=== PATIENT | female | born 1990 | race Hispanic/Latino ===

== ENCOUNTER → 2016-08-17 | Outpatient (CLI) | payer BC ==
[2016-08-17 11:28] LABS: INFLUENZA VIRUS TYPE A ANTIBOD Negative (NEGATIVE); INFLUENZA VIRUS TYPE B ANTIBOD Negative (NEGATIVE)
== END ==
LOC: LAB 11:06
PROVIDERS: ATTEND Physician Assistant
DX: R53.81 Other malaise (principal)
CPT/HCPCS: 87502

== ENCOUNTER → 2016-10-27 | Outpatient (CLI) | payer BC ==
[~2016-10-27] MED LIST: AC500T PO; ESCI5TAB PO
[2016-10-27 12:18] VITALS: BP 107/72
--- NOTE | 2016-10-27 12:18 | Urgent Care T Sheet Gen (E) ---
Intake General Temperature (Fahrenheit): 98.5 Pulse: 79 Blood Pressure Systolic: 107 Blood Pressure Diastolic: 72 Respirations: 20 SPO2: 100 Description of Symptoms Patient presents following an anxiety attack. 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 States that out of nowhere (no triggering event) she noticed chest tightness, shaking and uncontrollable crying. Patient states she went to the break room where she was able to calm herself down over time. States she has a history of depression for which she has taken Celexa, Lexapro and Zoloft in the past. States she took herself off the meds several years ago because they made her lethargic. Patient states that over the past few month, her depression and anxiety has worsened. Her co-workers encouraged her to be seen today. She doesn't have a PCP but is trying to get established with Dr Lee's office. History of Present Illness Allergies: Coded Allergies: No Known Drug Allergies (Unverified , 05/23/12) Home Meds Reported Medications Acetaminophen 500 Mg [id number] Mg PO 05/23/12 Respiratory Constitutional Symptoms: No syptoms reported EENTM: No symptoms reported Respiratory: No symptoms reported Cardiovascular: No symptoms reported Neurological: Anxiety Depressed All Other Systems Reviewed Remaining Systems: All other systems reviewed with negative findings Past Nkkqbza-[id number]-Qxcjyc Hx Surgeries/Hospitalizations Hospitalization/Surgery Hx: abcess on abd, broken Left wrist, left torn meniscus, Respiratory Respiratory History: None Integumentary Integumentary History: None Physical Exam Physical Exam General Appearance: WD/WN No apparent distress (did tear up a few times during exam.) Respiratory Exam: Lungs clear Normal breath sounds Cardiovascular Exam: Regular rate, rhythm Neurologic/Psychiatric Exam: Oriented times 4 Depressed effect Departure Urgent Care Impression Impression: Primary Impression: Depressed Qualified Code: F32.9 - Major depressive disorder, single episode, unspecified Additional Impression: Anxiety Departure Disposition: 01 HOME OR SELF-CARE Condition: Stable Additional Instructions: Encouraged the patient to call and set up an appt with someone in Dr Lee's office as I believe she needs to resume her daily depression meds. In the meantime, I have started her back on Lexapro. I have started her on 5mg daily and will most likely increase to 10mg daily. Instructed the patient to call me in a week so that I know either she has been seen by Rosa and they' ve taken over her Lexapro prescription or that I need to be the one to adjust the dose. Patient agrees. I have also prescribed Xanax 0.25mg tab q 8 hrs prn anxiety #6. Told her that this med is for emergencies, much like the episode she experienced this morning. F/U either with Rosa's office or with me next week. Return if no better or if symptoms worsen Patient understands DC instructions. All questions were answered. Scripts Escitalopram Oxalate (Lexapro)5 Mg Tablet5 Mg PO DAILY #7 TAB Prov:RENEE EDUARDO 10/27/16 End of report . RENEE EDUARDO Oct 27, 2016 12:18
== END ==
LOC: MHUC 11:44
PROVIDERS: ATTEND Physician Assistant
DX: F32.9 Major depressive disorder, single episode, unspecified (principal)
CPT/HCPCS: 99213